=== PATIENT | female | born 1985 | race Caucasian/White ===

== ENCOUNTER 2018-09-25 13:33 | Emergency (ER) | payer OTHER ==
[~2018-09-25] VITALS: Ht 175.3 cm; Wt 79.4 kg
[2018-09-25] MEDS ORDERED: CLONAZEPAM 1 MG1 M1 PO (13:36)
[2018-09-25] MEDS ORDERED: OXYCODONE HCL15 MG PO (13:37)
[2018-09-25] MEDS ORDERED: LEXAPRO20 MG PO (13:38)
[2018-09-25] MEDS ORDERED: METHADONE HCL 110 M1 PO (13:38)
[2018-09-25 15:31] LABS: ABSOLUTE NEUTROPHILS 3.5 thou/uL (1.4-8.2); BASOPHILS 1.3 % (0.0-2.0); EOSINOPHILS 3.8 % (0.0-3.0); HEMATOCRIT 35.8 % (37.0-47.0); LYMPHOCYTES 51.3 % (24.0-44.0); MCH 31.3 pg (26.0-34.0); MCHC 33.5 g/dL (28.0-37.0); MCV 93.5 fL (80.0-100.0); MONOCYTES 5.3 % (1.0-8.0); PLATELET COUNT 395 thou/uL (150-400); POLYS 38.3 % (36.0-66.0); RBC 3.83 mil/uL (4.20-5.00); RDW 13.9 % (10.5-14.5); WBC 9.3 thou/uL (4.0-11.0)
[2018-09-25 15:43] LABS: CALCIUM 9.1 mg/dL (8.5-10.1); CREATININE 0.8 mg/dL (0.6-1.0)
[2018-09-25 15:47] LABS: ALBUMIN 3.9 g/dL (3.4-5.0); TOTAL BILIRUBIN 0.2 mg/dL (<0.1-1.0); TOTAL PROTEIN 7.3 g/dL (6.4-8.2); URIC ACID* 3.3 mg/dL (2.6-7.2)
[2018-09-25] MEDS ORDERED: NAPROSYN500 MG PO (16:42)
[2018-09-25] MEDS ORDERED: TRAMADOL 50 MG50 MG PO (16:42)
[2018-09-25] MEDS ORDERED: KEFLEX500 M1 PO (16:42)
[2018-09-25 18:22] VITALS: BP 108/70
== END 2018-09-25 17:34 | disposition home or self-care (01) ==
LOC: ER 13:33
PROVIDERS: Emergency Medicine
DX: L03.116 Cellulitis of left lower limb (principal); M25.572 Pain in left ankle and joints of left foot; F17.210 Nicotine dependence, cigarettes, uncomplicated; N80.9 Endometriosis, unspecified; F41.9 Anxiety disorder, unspecified; Z88.5 Allergy status to narcotic agent; Z90.49 Acquired absence of other specified parts of digestive tract